=== PATIENT | male | born 1965 | race Caucasian/White ===

== ENCOUNTER 2018-09-26 13:56 | Emergency (ER) | payer OTHER ==
[2018-09-26 14:39] VITALS: BP 148/94
--- NOTE | 2018-09-26 16:29 | UC ---
Respiratory Complaint HPI - HPI Summary HPI Summary: C/O sinus pain x 1 week now with cough x 2 days with some hemoptysis. Chest pain with coughing. - History of Current Complaint Chief Complaint: UCRespiratory Stated Complaint: COUGH Time Seen by Provider: 09/26/18 16:22 Hx Obtained From: Patient Onset/Duration: Gradual Onset, Lasting Weeks - 1, Worse Since - onset Timing: Constant Severity Initially: Mild Severity Currently: Moderate Pain Intensity: 0 Character: Cough: Productive Aggravating Factors: Deep Breaths, Recumbent Position Alleviating Factors: Nothing Associated Signs And Symptoms: Positive: Wheezing, Hemoptysis, Nasal Congestion , Sinus Discomfort Related History: Seasonal Allergies - Allergies/Home Medications Allergies/Adverse Reactions: Allergies Allergy/AdvReac Type Severity Reaction Status Date / Time No Known Allergies Allergy Verified 09/26/18 14:32 PMH/Surg Hx/FS Hx/Imm Hx Previously Healthy: Yes - Surgical History Surgical History: Yes Surgery Procedure, Year, and Place: Appendectomy, 1996, [facility]. [place] [facility] [place] Family History Known Family History: Negative: Diabetes - Social History Occupation: Employed Full-time Lives: With Family Alcohol Use: Rare Substance Use Type: None Smoking Status (MU): Never Smoked Tobacco - Immunization History Most Recent Influenza Vaccination: Not the Season Review of Systems All Other Systems Reviewed And Are Negative: Yes Constitutional: Positive: Fatigue ENT: Positive: Sore Throat, Sinus Pain/Tenderness Respiratory: Positive: Shortness Of Breath, Cough Cardiovascular: Positive: Chest Pain Is Patient Immunocompromised?: No Physical Exam Triage Information Reviewed: Yes Appearance: No Pain Distress, Well-Nourished, Ill-Appearing Vital Signs: Initial Vital Signs Temp 98.6 F 09/26/18 14:34 Pulse 81 09/26/18 14:34 Resp 20 09/26/18 14:34 BP 148/94 09/26/18 14:34 Pulse Ox 98 09/26/18 14:34 Vital Signs Reviewed: Yes Eyes: Positive: Conjunctiva Inflamed - OU ENT: Positive: Pharynx normal, Nasal congestion, TMs normal Neck exam: Normal Respiratory: Positive: Lungs clear, Wheezing - just expiratory with coughing Cardiovascular Exam: Normal Musculoskeletal Exam: Normal Neurological Exam: Normal Psychological Exam: Normal Skin Exam: Normal UC Diagnostic Evaluation - Laboratory O2 Sat by Pulse Oximetry: 98 - Radiology Radiology Interpretation Completed By: Radiologist Summary of Radiographic Findings: NAD per radiology Respiratory Course/Dx - Differential Dx/Diagnosis Differential Diagnosis/HQI/PQRI: Asthma, Lower Resp Infection, Sinusitis Provider Diagnosis: Sinusitis, Bronchospasm, acute Discharge - Sign-Out/Discharge Documenting (check all that apply): Patient Departure All imaging exams completed and their final reports reviewed: No Studies - Discharge Plan Condition: Stable Disposition: HOME Prescriptions: DOXYcycline CAP(*) [DOXYcycline 100MG CAP(*)] 100 mg PO BID #20 cap predniSONE TAB* [Deltasone 20 MG TAB*] 60 mg PO DAILY #18 tab Patient Education Materials: Sinusitis (ED), Doxycycline (By mouth), Bronchospasm (ED), Prednisone (By mouth) Referrals: Ehsan Butler MD [Primary Care Provider] - - Billing Disposition and Condition Condition: STABLE Disposition: Home
[2018-09-26] MEDS ORDERED: DOXYcycline CAP(*) 100 MG PO ONE (17:06)
[2018-09-26] MEDS ORDERED: predniSONE TAB* 20 MG PO ONE (17:06)
== END 2018-09-26 17:18 | disposition home or self-care (01) ==
LOC: UCCORT 13:56
DX: J32.9 Chronic sinusitis, unspecified (principal); J98.01 Acute bronchospasm
CPT/HCPCS: 71046; 99212; A9270-GY; G0463; J7512